=== PATIENT | female | born 1980 | race Caucasian/White ===

== ENCOUNTER 2017-01-04 13:37 | Observation (INO) | payer BC, OTHER ==
[2017-01-04] MEDS ORDERED: KETOROLAC 30 MG/1 ML SDV ONE ×2 (14:05→19:00)
[2017-01-04] MEDS ORDERED: KETOROLAC 15 MG/1 ML SDV IVP ONE (14:09)
[2017-01-04] MEDS ORDERED: NS 1,000 ML IV ONE (14:10)
[2017-01-04 14:18] LABS: COLOR YELLOW; LEUKOCYTE ESTERASE,URINE NEGATIVE (NEGATIVE); NITRITE,URINE NEGATIVE (NEGATIVE)
[2017-01-04] MEDS ORDERED: ONDANSETRON 4 MG/2 ML VIAL IVP ONE (14:32)
--- NOTE | 2017-01-04 14:41 | EDPHY ---
H & P Stated Complaint: rlq abd pain since this morning HPI/ROS: CHIEF COMPLAINT: Abdominal pain HISTORY OF PRESENT ILLNESS: Patient complains of sudden onset of right lower quadrant abdominal pain around 10:00 a.m. today. Constant duration. Moderate to severe pain. Worse with bending over change of position. Does not radiate. No pelvic pain. No vaginal bleeding or discharge. No fever chills. No nausea or vomiting. Some diarrhea with this. No other associated complaints or modifying factors. No history of ovarian cysts or torsion. LMP was 4 weeks ago PREVIOUS ABDOMINAL SURGERIES/DIAGNOSES: None NPO: Last night REVIEW OF SYSTEMS: Ten systems reviewed and are negative unless otherwise noted in the HPI EXAMINATION: General Appearance: Alert, no distress, in obvious discomfort Head: normocephalic, atraumatic Eyes: Pupils equal and round, no conjunctival pallor or injection ENT, Mouth: Mucous membranes moist. Uvula midline. Neck: Normal inspection, supple, non-tender Respiratory: Lungs are clear to auscultation. No wheezing, rhonchi or crackles. Cardiovascular: Regular rate and rhythm. No murmur. Pulses intact distally. Gastrointestinal: Abdomen is soft. No distention or tympany. There is moderate to severe tenderness in right lower quadrant. Guarding in the right lower quadrant. Positive Rovsing sign. No rigidity. No CVA tenderness. Back: non-tender, no bony abnormalities Neurological: A&O, nonfocal, GCS 15 Skin: Warm and dry, no rash. No petechiae or purpura Extremities: Nontender, no pedal edema Psychiatric: Mood and affect normal DIFFERENTIAL DIAGNOSES: Including but not limited to appendicitis, colitis, enteritis, ovarian cyst, ovarian torsion, ureteral lithiasis, nephrolithiasis, renal colic MDM: 2:32 p.m. Right lower quadrant abdominal pain with examination that suggest appendicitis. I have ordered a CT scan of the abdomen pelvis. Laboratory studies also been ordered. She is in no acute distress. 3:00 p.m. Leukocytosis without significant laboratory abnormalities otherwise. CT scan is pending. She is currently declining pain medication. 3:40 p.m. Patient has had her CT scan performed. Results are pending at this time. She is in no acute distress still declining pain medication 3:50 p.m. Notified by radiologist Dr. Simmons. CT scan reveals inflammation of the appendix and distal ileum. I re-evaluated the patient informed her that we will obtain General surgery consult to rule out or rule in appendicitis. 3:55 p.m. I discussed the case with General surgery Dr. Arriaga. He will evaluate the patient emergency department 4:[address] Arriaga has evaluated the patient in the emergency department. He plans to take the patient to the OR for laparoscopic appendectomy. He does not have any further orders for her at this time. He plans to discharge her home from the OR later today. She will be discharged to the operating room for disposition from there. She is in no acute distress, stable condition at this time. ED Precautions: Worsening pain. Fever. Bloody stools. Bloody emesis. Constipation or diarrhea. SUPERVISION: Patient was evaluated in conjunction with the supervising physician. Please see their note for details. Source: Patient, Family Exam Limitations: No limitations - Personal History LMP (Females 10-55): 15-21 Days Ago Current Tetanus/Diphtheria Vaccine: Yes - Medical/Surgical History Hx Asthma: No Hx Chronic Respiratory Disease: No Hx Diabetes: No Hx Cardiac Disease: No Hx Renal Disease: No Hx Cirrhosis: No Hx Alcoholism: No Hx HIV/AIDS: No Hx Splenectomy or Spleen Trauma: No Other PMH: denies - Social History Smoking Status: Never smoked Constitutional: Initial Vital Signs Temperature (C) 98.2 F 01/04/17 13:41 Heart Rate 105 H 01/04/17 13:41 Respiratory Rate 20 01/04/17 13:41 Blood Pressure 114/80 01/04/17 13:41 O2 Sat (%) 99 01/04/17 13:41 O2 Delivery Mode Room Air Allergies/Adverse Reactions: Sulfa (Sulfonamide Antibiotics) Allergy (Verified 01/04/17 13:40) Home Medications: Medication Instructions Recorded Citalopram [CeleXA 20 MG] 40 mg PO DAILY 01/04/17 Clindamycin 150 mg PO Q8HRS #0 cap 01/05/17 Doxycycline Hyclate [Vibramycin 100 mg PO BID #0 capsule 01/05/17 100 MG (*)] Hydrocodone/APAP 5/325 [[place] 1 - 2 tab PO Q4HRS PRN #20 tab 01/05/17 5/325 (*)] Medical Decision Making - Diagnostics Imaging Results: Imaging Impressions Abdomen CT 01/04/17 14:32 Impression: Regional inflammation the right lower quadrant involving both the terminal ileum and the appendix. It is unclear whether this represents primary appendicitis with reactive inflammation of the terminal ileum, or enteritis/ Crohn disease resulting in secondary inflammation of the appendix. 2. No abscess, perforation, or bowel obstruction. 3. Hemorrhagic follicle left ovary. Findings discussed with Emergency Department physician patent legal assistant, Johnny Bojorquez at 01/04/2017 15:54. - Data Points Laboratory Results: Laboratory Results 01/04/17 14:00 01/04/17 14:00 Medications Given: Discontinued Medications Hydrocodone Bitart/Acetaminophen ([place] 5/325) 1 - 2 tab PO Q4HRS PRN PRN Reason: Pain, Moderate Able to Take PO Stop: 01/14/17 20:02 Last Admin: 01/05/17 10:25 Dose: 1 tab Clindamycin (Clindamycin) 150 mg PO Q8HRS MAYELA PRN Reason: Protocol Stop: 02/03/17 21:59 Last Admin: 01/05/17 06:01 Dose: 150 mg Doxycycline Hyclate (Doxycycline Hyclate) 100 mg PO BID MAYELA PRN Reason: Protocol Stop: 02/03/17 20:59 Last Admin: 01/05/17 08:48 Dose: 100 mg Sodium Chloride (Ns) 1,000 mls @ 0 mls/hr IV ONCE ONE PRN Reason: Wide Open Stop: 01/04/17 14:11 Last Admin: 01/04/17 14:12 Dose: 1,000 mls Ertapenem 1 gm/ Sodium (Chloride) 100 mls @ 200 mls/hr IV EDNOW ONE PRN Reason: Protocol Stop: 01/04/17 17:55 Last Admin: 01/04/17 22:04 Dose: Not Given Ketorolac Tromethamine (Toradol) 15 mg IVP EDNOW ONE Stop: 01/04/17 14:10 Last Admin: 01/04/17 14:11 Dose: 15 mg Ketorolac Tromethamine (Toradol) 15 mg IVP Q6HRS [facility] Stop: 01/10/17 00:00 Last Admin: 01/05/17 11:57 Dose: 15 mg Morphine Sulfate (Morphine) 6 mg IVP EDNOW ONE Stop: 01/04/17 14:33 Last Admin: 01/04/17 17:00 Dose: 4 mg Morphine Sulfate (Morphine) 1 - 2 mg IVP Q2HRS PRN PRN Reason: Pain, Breakthrough Stop: 01/14/17 20:02 Last Admin: 01/04/17 21:32 Dose: 2 mg Ondansetron HCl (Zofran) 4 mg IVP EDNOW ONE Stop: 01/04/17 14:33 Last Admin: 01/04/17 17:00 Dose: 4 mg Departure - Departure Disposition: [facility] Acute Condition: Good
[2017-01-04 14:43] LABS: WBC,URINE NONE SEEN /hpf (0-3)
[2017-01-04 14:43] LABS: % IMMATURE GRANULYOCYTES 0.3 % (0.0-1.1); ABSOLUTE IMMATURE GRANULOCYTES 0.05 10^3/uL (0.00-0.10); ADD DIFF? NO; ADD MORPH? NO; ADD SCAN? NO; ALANINE AMINOTRANSFERASE 23 IU/L (9-52); ALBUMIN 4.6 g/dL (3.5-5.0); ALKALINE PHOSPHATASE 77 IU/L (38-126); ANION GAP 11 mEq/L (8-16); ASPARTATE AMINOTRANSFERASE 19 IU/L (14-46); ATYPICAL LYMPHOCYTE FLAG 10 (0-99); BILIRUBIN,TOTAL 0.9 mg/dL (0.1-1.4); BILIRUBIN-CONJUGATED 0.4 mg/dL (0.0-0.5); BILIRUBIN-UNCONJUGATED 0.5 mg/dL (0.0-1.1); CALCIUM 9.3 mg/dL (8.5-10.4); CARBON DIOXIDE 23 mEq/l (22-31); CHLORIDE 103 mEq/L (97-110); CREATININE 0.7 mg/dL (0.6-1.0); FRAGMENT RBC FLAG 0 (0-99); GLOMERULAR FILTRATION RATE > 60; GLUCOSE 99 mg/dL (70-100); HEMATOCRIT 43.6 % (38.0-47.0); HEMOGLOBIN 14.7 g/dL (12.6-16.3); LEFT SHIFT FLG 40 (0-99); LIPEMIA HEMOLYSIS FLAG 80 (0-99); MEAN CELL HEMOGLOBIN 28.9 pg (27.9-34.1); MEAN CELL HEMOGLOBIN CONCENTR. 33.7 g/dL (32.4-36.7); MEAN CELL VOLUME 85.7 fL (81.5-99.8); MEAN PLATELET VOLUME 9.3 fL (8.7-11.7); PLATELET CLUMPS FLAG 20 (0-99); PLATELET COUNT 233 10^3/uL (150-400); POTASSIUM 3.7 mEq/L (3.5-5.2); RED BLOOD CELL COUNT 5.09 10^6/uL (4.18-5.33); SODIUM 137 mEq/L (134-144); TOTAL PROTEIN 7.3 g/dL (6.3-8.2)
[2017-01-04 14:53] LABS: INR 0.92 (0.83-1.16); PROTIME(PATIENT) 12.3 SEC (12.0-15.0)
[2017-01-04 14:54] LABS: APTT 25.3 SEC (23.0-38.0)
[2017-01-04] MEDS ORDERED: IOPAMIDOL (ISOVUE-300) 100 ML BTL ONE (15:09)
[2017-01-04] MEDS ORDERED: ONDANSETRON 4 MG/2 ML VIAL ONE ×2 (16:49→17:48)
[2017-01-04] MEDS ORDERED: ERTAPENEM 1 GM in NS 100 ML IV ONE (17:26)
--- NOTE | 2017-01-04 17:30 | PDCONSULT ---
Surveyor Helper Rod Note: 36 yo woman with onset of RLQ abd pain this am. Progressively worsening with pain now excruciating. Some diarrhea. No N/V. No prior episodes. No family hx of GI issues. PMH: none PSH: Right 6th digit excision Meds: none (IUD) Allergy Sulfa drugs rxn GI/eye swelling Fam Hx: MGF heart, skin cancers ROS: abd pain all others reviewed and are negative Temp Pulse Resp BP Pulse Ox 37.1 C 90 16 114/80 98 01/04/17 16:17 01/04/17 16:17 01/04/17 16:17 01/04/17 13:41 01/04/17 16:17 Anicteric, EOMI RRR S1/S2 no murmur CTA, no wheezes Guarding tender at Elio's point AA&O Appears in mild-moderate distress due to abd pain no cervical/supraclavicular adenopathy No JVD/trachea midline skin normal turgir and tone No CVA tenderness Non focal neurologic exam 01/04/17 14:00 01/04/17 14:00 Total Bilirubin 0.9 mg/dL (0.1-1.4) 01/04/17 14:00 Conjugated Bilirubin 0.4 mg/dL (0.0-0.5) 01/04/17 14:00 Unconjugated Bilirubin 0.5 mg/dL (0.0-1.1) 01/04/17 14:00 AST 19 IU/L (14-46) 01/04/17 14:00 ALT 23 IU/L (9-52) 01/04/17 14:[address] 01/04/17 14:32 Impression: Regional inflammation the right lower quadrant involving both the terminal ileum and the appendix. It is unclear whether this represents primary appendicitis with reactive inflammation of the terminal ileum, or enteritis/ Crohn disease resulting in secondary inflammation of the appendix. 2. No abscess, perforation, or bowel obstruction. 3. Hemorrhagic follicle left ovary. Findings discussed with Emergency Department physician assistant facility manager, Johnny Bojorquez at 01/04/2017 15:54. I personally reviewed the images on PACS with robotic machine tender production radiologist Assessment/plan: Abdominal pain Appendicitis and ruptured ovarian cyst in the differential. Favor appendicitis due to exam and WBC elevation Recommend IV Invanz, laparoscopy appendectomy. The risks, benefits and alternatives including but not limited to bleeding, infection, injury to adjacent structures and need for additional intervention Consent obtained from patient.
[2017-01-04] MEDS ORDERED: BUPIVACAINE 0.5% 30 ML SDV ONE (17:35)
[2017-01-04] MEDS ORDERED: LIDOCAINE 1% 300 MG/30 ML SDV ONE (17:36)
[2017-01-04] MEDS ORDERED: ROCURONIUM 50 MG/5 ML VIAL ONE (17:48)
[2017-01-04] MEDS ORDERED: LIDOCAINE 2% 100 MG/5 ML SYR ONE (17:48)
[2017-01-04] MEDS ORDERED: SUGAMMADEX SODIUM 200 MG/2 ML VIAL IVP ONE (17:48)
[2017-01-04] MEDS ORDERED: DEXAMETHASONE 4 MG/ML VIAL ONE (17:48)
[2017-01-04] MEDS ORDERED: fentaNYL 100 MCG/2 ML INJ ONE (17:49)
[2017-01-04] MEDS ORDERED: PROPOFOL 200 MG/20 ML VIAL ONE (17:49)
[2017-01-04] MEDS ORDERED: MIDAZOLAM 2 MG/2 ML VIAL ONE (17:59)
[2017-01-04] MEDS ORDERED: ceFAZolin 1 GM VIAL ONE ×2 (18:13→18:14)
--- NOTE | 2017-01-04 19:59 | GCON ---
[f rep st] CONSULTATION INTRAOPERATIVE CONSULTATION DATE OF CONSULTATION: 01/04/2017 SERVICE: Gynecology Service. HISTORY UPON CONSULTATION: I was called by Dr. 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 The patient is a 36-year-old, para 1, who had presented to the emergency room co mplaining of right lower quadrant pain and was febrile. The patient had had a CAT scan which had re vealed potential terminal ilium inflammation with possible inflamed appendix and was also noted to h ave a left ovarian cyst. The patient was taken to the operating room by Dr. Arriaga feeling that sh e had an appendicitis. Per Dr. Arriaga, there were no comments of vaginal issues and no vaginal cul tures had been obtained. From his recollection, the patient had a baby a year ago and had an IUD in place. The patient reportedly had an elevated white count of 15,000 and was febrile in the emergen cy room. Operative time, the patient had a normal-appearing appendix by Dr. Arriaga's report and th is has already been removed. He had question about how the left tube appeared and wondered if this was possibly a TOA versus a pyosalpinx. The uterus appeared totally normal, was mobile, d there wer e no adhesions. There were small amounts of pus-appearing fluid in the posterior cul-de-sac. Dr. Jeff snell reported that he had suctioned out quite a bit of pus already. The right tube and ovary appe ared totally normal and was free of adhesions and no signs of endometriosis. The left ovary appeare d normal with possibly a small cyst that had a benign appearance. However, the ovary was still norm al size, approximately 3 cm. The left tube had possible dilation in the distal portion consistent w ith a hydrosalpinx. There was really no inflammation and no active pus at the fimbria. The fimbria appeared normal and were not inflamed, and there was no sign of adhesions at all. The bowel appear ed normal per Dr. Arriaga. The liver edge appeared normal and smooth, and there were no adhesions s igns that would be consistent with Ppir-Phgc-Ubdgkm syndrome. ASSESSMENT: Intraoperative consultation for a 36-year-old with fever and right lower quadrant pain. Intraoperatively, the patient has a normal appendix that was removed, and the terminal ilium was n ormal per Dr. Arriaga. Gynecologic organs appear normal except for possibly mild hydrosalpinx on th e left tube but no signs of a tubo-ovarian abscess or pyosalpinx. No scar tissue. I recommend obtaining some of the fluid for culture. I feel the patient would be a candidate for ou tpatient management. In case this has any wastewater process engineer component, I recommend covering with clindamycin and doxycycline. Dr. Arriaga will discharge the patient after surgery and advise a 1-week followup with a mushroom laborer. If the patient has an existing doctor, she should follow up with them, otherwise [facility], [place]. Approximately 5-10 minutes was spent in the operating room discussing the case with Dr. Arriaga. I did not scrub in on the case. /[id number]/MODL
[2017-01-04] MEDS ORDERED: HYDROCODONE/APAP 5/325 TAB PO PRN (20:03)
[2017-01-04] MEDS ORDERED: ONDANSETRON 4 MG/2 ML VIAL IVP PRN (20:03)
--- NOTE | 2017-01-04 20:29 | GOP ---
[f rep st] OPERATIVE REPORT DATE OF OPERATION: SURGEON: Abdirashid Arriaga MD ANESTHESIA: General endotracheal anesthesia was used. ANESTHESIOLOGIST: Checo Walker MD PREOPERATIVE DIAGNOSIS: Appendicitis POSTOPERATIVE DIAGNOSIS: Pelvic inflammatory disease and appendicitis. PROCEDURE PERFORMED: Laparoscopic appendectomy, aspiration of fluid. FINDINGS: SPECIMENS: Appendix and culture fluid for routine culture. INDICATIONS: A 36-year-old woman who presents with right lower quadrant abdominal pain, leukocytosi s, and fever. CT scan shows fluid in the pelvis. Possible appendicitis, possible ileitis. DESCRIPTION OF PROCEDURE: The patient was brought to the operating room. After induction of endotr acheal anesthesia in a supine position, her abdomen was prepped with chlorhexidine and draped steril marisol. Open trocar placement was done supraumbilically and the abdomen was insufflated to 15 torr wit h carbon dioxide. Working trocars were placed in the lower midline under direct visualization. The re was pus noted in the cul-de-sac. The appendix looked grossly normal, although it was curled. Th e left fallopian tube had a small degree of hydrosalpinx and was larger than the right side. Intrao perative consult was done with Dr. Bourne to ensure no additional procedures or concerns were to be done. The left and right ovary appeared grossly normal. The small bowel was run from the ligament of Treitz to the ileocecal valve. There was no sign of pathology within the small bowel. The dista l colon from the splenic flexure to the rectum all appeared normal without any signs of inflammation . It was decided to perform an appendectomy, as this was the most likely source of her pelvic infla mmatory disease. No Kmyb-Xxdx-Mnvlcm was noted. The mesoappendix was controlled with LigaSure bipolar energy and the appendix was divided flush with the base using an Endo-CHARLETTE stapler. This was taken off and passed off as a specimen. Cultures obt ained from the cul-de-sac and sent off for routine anaerobic and aerobic culture. The abdomen was t hen irrigated and aspirated until clear. Working trocars were removed. The fascia was closed using 0 Vicryl at the level of the umbilicus and all 3 ports were reapproximated using 4-0 Monocryl. Misha mabond was applied. The patient was awakened, extubated, and taken to the recovery room in stable c ondition. No immediate complications. Needle, instrument, and sponge counts correct x2. INTRAOPERATIVE CONSULT: Mandy Bourne MD /[id number]/MODL
[2017-01-04] MEDS: DOXYCYCLINE HYCLATE 100 MG CAP/TAB PO SCH (21:25)
[2017-01-04] MEDS: CLINDAMYCIN 150 MG CAP PO SCH (22:29)
[2017-01-04] MEDS: KETOROLAC 15 MG/1 ML SDV IVP SCH (23:21)
[2017-01-05] MEDS: KETOROLAC 15 MG/1 ML SDV IVP SCH ×2 (05:50→11:57)
[2017-01-05] MEDS: CLINDAMYCIN 150 MG CAP PO SCH (06:01)
[2017-01-05 07:43] VITALS: RESP 16
[2017-01-05] MEDS: DOXYCYCLINE HYCLATE 100 MG CAP/TAB PO SCH (08:48)
[2017-01-05 11:34] VITALS: BP 101/57; PULSE 90; TEMP 98.3; O2SAT 95
== END 2017-01-05 12:53 | disposition home or self-care (01) ==
LOC: F1N 19:57
PROVIDERS: ADMIT Surgery; ATTEND Surgery
PROC: 0U9F4ZZ Drainage of Cul-de-sac, Percutaneous Endoscopic Approach (ICD-10-PCS; principal; 2017-01-04 18:01)
PROC: 0DTJ4ZZ Resection of Appendix, Percutaneous Endoscopic Approach (ICD-10-PCS; principal; 2017-01-04 18:01)
DX: K37 Unspecified appendicitis (principal); N73.9 Female pelvic inflammatory disease, unspecified; Z88.2 Allergy status to sulfonamides
CPT/HCPCS: 44970; 49322; 74177; G0378; 82947-QW; J0690; J1100; J1335; J1885; J2001; J2250; J2405; J2704; J3010; Q9967

== ENCOUNTER 2017-05-19 09:51 | Emergency (ER) | payer OTHER ==
--- NOTE | 2017-05-19 10:36 | CPEKG ---
Heart Rate: 83 RR Interval: 723 P-R Interval: 116 QRSD Interval: 88 QT Interval: 376 QTC Interval: 442 P La[place]: 41 QRS [place]urel: 59 T Wave Laurel: -24 EKG Severity - BORDERLINE ECG - EKG Impression: SINUS RHYTHM EKG Impression: BORDERLINE T ABNORMALITIES, DIFFUSE LEADS Preliminary Awaiting MD Review
[2017-05-19] MEDS ORDERED: NS 1,000 ML IV ONE ×2 (10:40→11:18)
--- NOTE | 2017-05-19 11:20 | EDPHY ---
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 Denies falling/LOC/head injury. She reports that she continues to eat 3 meals a day and drink plenty of fluids. She did receive her influenza vaccine this year. She missed work today because of the symptoms. She did not call primary care provider Modifying Factors: None Comment: ROS: see HPI Constitutional: No fever, no chills, no weight loss Eyes: No blurred vision Respiratory: No shortness of breath, no cough Cardiovascular: No chest pain Gastrointestinal: No nausea, no vomiting, no diarrhea Genitourinary: No dysuria Extremities: No myalgias Neurologic: No weakness, no numbness Skin: No rashes Hematologic: No bruising, no bleeding MEDICAL/SURGICAL/SOCIAL HISTORY: Medical history: "mild autoimmune disorder', anxiety Surgical history: Denies Social history: Employed. CONSTITUTIONAL: Well-appearing adult white female, awake and alert, no obvious distress HEENT: Atraumatic and normocephalic, PERRL, EOMI. Tympanic membranes clear. Oropharynx clear, no exudate and moist pink mucosa. Airway patent. No lymphadenopathy. No meningismus. Cardiovascular: Normal S1/S2, regular rate, regular rhythm, without murmur rub or gallop. PULMONARY/CHEST: Symmetrical and nontender. Clear to auscultation bilaterally. Good air movement. No accessory muscle usage. ABDOMEN: Soft, nondistended, nontender, no rebound, no guarding, no peritoneal signs, no masses or organomegaly. No CVAT. EXTREMITIES: 2/2 pulses, no deformities, no clubbing, no cyanosis or edema. NEUROLOGICAL: no focal neuro deficits. GCS 15. SKIN: Warm and dry, no erythema. no rash. Good capillary refill. Source: Patient Exam Limitations: No limitations - Personal History LMP (Females 10-55): 1-7 Days Ago Current Tetanus Diphtheria and Acellular Pertussis (TDAP): Yes - Medical/Surgical History Hx Asthma: No Hx Chronic Respiratory Disease: No Hx Diabetes: No Hx Cardiac Disease: No Hx Renal Disease: No Hx Cirrhosis: No Hx Alcoholism: No Hx HIV/AIDS: No Hx Splenectomy or Spleen Trauma: No Other PMH: "mild autoimmune disorder'. anxiety - Social History Smoking Status: Never smoked Constitutional: Initial Vital Signs Temperature (C) 37.2 C 05/19/17 10:03 Heart Rate 84 05/19/17 10:03 Respiratory Rate 16 05/19/17 10:03 Blood Pressure 117/75 05/19/17 10:03 O2 Sat (%) 98 05/19/17 10:03 O2 Delivery Mode Room Air Allergies/Adverse Reactions: Sulfa (Sulfonamide Antibiotics) Allergy (Unknown, Verified 05/19/17 10:03) Home Medications: Medication Instructions Recorded Citalopram [CeleXA 20 MG] 40 mg PO DAILY 01/04/17 Medical Decision Making Procedures: 12 lead EKG: Indication: Fatigue Rhythm: Normal sinus rhythm, rate of 83 beats per minute [place]: Normal Intervals: Normal QRS: Normal ST segments: Normal INTERPRETATION: Normal EKG The 12 lead EKG was interpreted by myself. ED Course/Re-evaluation: EKG, labs, urinalysis, orthostatics Given 2 L normal saline Afebrile and no acute systemic signs. ECG shows no acute ischemic changes, no arrhythmias Orthostatics within normal limits 1200: Labs reviewed; grossly unremarkable. Urinalysis does not show infection Differential Diagnosis: Differential diagnosis includes but is not limited to electrolyte disturbances, anemia, depression, viral syndrome. - Data Points Laboratory Results: Laboratory Results 05/19/17 10:22 05/19/17 10:22 05/19/17 05/19/17 05/19/17 13:05 10: 10:22 WBC RBC Hgb Hct MCV MCH MCHC RDW Plt Count MPV Neut % (Auto) Lymph % (Auto) [place] % (Auto) Eos % (Auto) Baso % (Auto) Nucleat RBC Rel Count Absolute Neuts (auto) Absolute Lymphs (auto) Absolute Monos (auto) Absolute Eos (auto) Absolute Basos (auto) Absolute Nucleated RBC Immature Gran % Immature Gran # ESR Sodium 135 mEq/L mEq/L (134-144) Potassium 4.5 mEq/L mEq/L (3.5-5.2) Chloride 102 mEq/L mEq/L (97-110) Carbon Dioxide 19 mEq/l L mEq/l (22-31) Anion Gap 14 mEq/L mEq/L (8-16) BUN 12 mg/dL mg/dL (7-23) Creatinine 0.7 mg/dL mg/dL (0.6-1.0) Estimated GFR > 60 Glucose 92 mg/dL mg/dL (70-100) Calcium 10.1 mg/dL mg/dL (8.5-10.4) Total Bilirubin 0.9 mg/dL mg/dL (0.1-1.4) AST 19 IU/L IU/L (14-46) ALT 27 IU/L IU/L (9-52) Alkaline Phosphatase 51 IU/L IU/L (38-126) Total Protein 7.9 g/dL g/dL (6.3-8.2) Albumin 4.8 g/dL g/dL (3.5-5.0) Lipase 277 IU/L IU/L (23-300) TSH 3.270 uIU/mL uIU/mL (0.465-4.680) Beta HCG, Qual NEGATIVE Urine Color YELLOW Urine Appearance CLEAR Urine pH 5.0 (5.0-7.5) Ur Specific [place] 1.011 (1.002-1.030) Urine Protein NEGATIVE (NEGATIVE) Urine Ketones NEGATIVE (NEGATIVE) Urine Blood NEGATIVE (NEGATIVE) Urine Nitrate NEGATIVE (NEGATIVE) Urine Bilirubin NEGATIVE (NEGATIVE) Urine Urobilinogen NEGATIVE EU EU (0.2-1.0) Ur Leukocyte Esterase NEGATIVE (NEGATIVE) Urine Glucose NEGATIVE (NEGATIVE) 05/19/17 10:22 WBC 9.75 10^3/uL H 10^3/uL (3.80-9.50) RBC 4.92 10^6/uL 10^6/uL (4.18-5.33) Hgb 14.9 g/dL g/dL (12.6-16.3) Hct 42.2 % % (38.0-47.0) MCV 85.8 fL fL (81.5-99.8) MCH 30.3 pg pg (27.9-34.1) MCHC 35.3 g/dL g/dL (32.4-36.7) RDW 12.7 % % (11.5-15.2) Plt Count 323 10^3/uL 10^3/uL (150-400) MPV 9.0 fL fL (8.7-11.7) Neut % (Auto) 60.0 % % (39.3-74.2) Lymph % (Auto) 30.6 % % (15.0-45.0) [place] % (Auto) 8.0 % % (4.5-13.0) Eos % (Auto) 0.4 % L % (0.6-7.6) Baso % (Auto) 0.6 % % (0.3-1.7) Nucleat RBC Rel Count 0.0 % % (0.0-0.2) Absolute Neuts (auto) 5.85 10^3/uL 10^3/uL (1.70-6.50) Absolute Lymphs (auto) 2.98 10^3/uL 10^3/uL (1.00-3.00) Absolute Monos (auto) 0.78 10^3/uL 10^3/uL (0.30-0.80) Absolute Eos (auto) 0.04 10^3/uL 10^3/uL (0.03-0.40) Absolute Basos (auto) 0.06 10^3/uL 10^3/uL (0.02-0.10) Absolute Nucleated RBC 0.00 10^3/uL 10^3/uL (0-0.01) Immature Gran % 0.4 % % (0.0-1.1) Immature Gran # 0.04 10^3/uL 10^3/uL (0.00-0.10) ESR 7 MM/HR MM/HR (0-20) Sodium Potassium Chloride Carbon Dioxide Anion Gap BUN Creatinine Estimated GFR Glucose Calcium Total Bilirubin AST ALT Alkaline Phosphatase Total Protein Albumin Lipase TSH Beta HCG, Qual Urine Color Urine Appearance Urine pH Ur Specific [place] Urine Protein Urine Ketones Urine Blood Urine Nitrate Urine Bilirubin Urine Urobilinogen Ur Leukocyte Esterase Urine Glucose Medications Given: Discontinued Medications Sodium Chloride (Ns) 1,000 mls @ 0 mls/hr IV ONCE ONE PRN Reason: Wide Open Stop: 05/19/17 10:41 Last Admin: 05/19/17 10:41 Dose: 1,000 mls Sodium Chloride (Ns) 1,000 mls @ 0 mls/hr IV ONCE ONE; Wide Open PRN Reason: Protocol Stop: 05/19/17 11:19 Last Admin: 05/19/17 12:05 Dose: 1,000 mls Ketorolac Tromethamine (Toradol) 30 mg IVP ONCE ONE Stop: 05/19/17 13:07 Last Admin: 05/19/17 13:10 Dose: 30 mg Departure - Departure Disposition: Home, Routine, Self-Care Clinical Impression: Viral syndrome Condition: Good Instructions: Viral Syndrome (ED) Additional Instructions: All your laboratory values today are unremarkable including no signs of anemia/ kidney injury/electrolyte imbalance/thyroid disease/urinary tract infection It appears you have a virus. Please rest as much as possible, drink plenty of fluids. Referrals: [facility],. [Clinic] - As per Instructions
[2017-05-19 11:24] LABS: % IMMATURE GRANULYOCYTES 0.4 % (0.0-1.1); ABSOLUTE IMMATURE GRANULOCYTES 0.04 10^3/uL (0.00-0.10); ADD DIFF? NO; ADD MORPH? NO; ADD SCAN? NO; ATYPICAL LYMPHOCYTE FLAG 10 (0-99); FRAGMENT RBC FLAG 0 (0-99); HEMATOCRIT 42.2 % (38.0-47.0); HEMOGLOBIN 14.9 g/dL (12.6-16.3); LEFT SHIFT FLG 0 (0-99); LIPEMIA HEMOLYSIS FLAG 90 (0-99); MEAN CELL HEMOGLOBIN 30.3 pg (27.9-34.1); MEAN CELL HEMOGLOBIN CONCENTR. 35.3 g/dL (32.4-36.7); MEAN CELL VOLUME 85.8 fL (81.5-99.8); PLATELET CLUMPS FLAG 0 (0-99); PLATELET COUNT 323 10^3/uL (150-400); RED BLOOD CELL COUNT 4.92 10^6/uL (4.18-5.33); RED CELL DISTRIBUTION WIDTH 12.7 % (11.5-15.2)
[2017-05-19 11:40] LABS: ALANINE AMINOTRANSFERASE 27 IU/L (9-52); ALBUMIN 4.8 g/dL (3.5-5.0); ALKALINE PHOSPHATASE 51 IU/L (38-126); ANION GAP 14 mEq/L (8-16); ASPARTATE AMINOTRANSFERASE 19 IU/L (14-46); BILIRUBIN,TOTAL 0.9 mg/dL (0.1-1.4); CALCIUM 10.1 mg/dL (8.5-10.4); CARBON DIOXIDE 19 mEq/l (22-31); CHLORIDE 102 mEq/L (97-110); CREATININE 0.7 mg/dL (0.6-1.0); GLOMERULAR FILTRATION RATE > 60; GLUCOSE 92 mg/dL (70-100); POTASSIUM 4.5 mEq/L (3.5-5.2); SODIUM 135 mEq/L (134-144); TOTAL PROTEIN 7.9 g/dL (6.3-8.2)
[2017-05-19 11:41] LABS: SEDIMENTATION RATE 7 MM/HR (0-20)
[2017-05-19 13:05] VITALS: BP 140/86; PULSE 91; RESP 18; TEMP 99; O2SAT 96
[2017-05-19] MEDS ORDERED: KETOROLAC 30 MG/1 ML SDV IVP ONE (13:06)
[2017-05-19 13:13] LABS: COLOR YELLOW; LEUKOCYTE ESTERASE,URINE NEGATIVE (NEGATIVE); NITRITE,URINE NEGATIVE (NEGATIVE)
== END 2017-05-19 13:44 | disposition home or self-care (01) ==
LOC: EEVIPCON 09:51
DX: B34.9 Viral infection, unspecified (principal); E86.9 Volume depletion, unspecified
CPT/HCPCS: 96374; J1885

== ENCOUNTER 2017-11-06 11:24 | Emergency (ER) | payer OTHER ==
[2017-11-06] MEDS ORDERED: OXYCODONE/APAP 5/325 TAB ONE (13:18)
[2017-11-06] MEDS ORDERED: IBUPROFEN 600 MG TAB PO ONE ×2 (13:18→13:20)
[2017-11-06] MEDS ORDERED: OXYCODONE/APAP 5/325 TAB PO ONE (13:20)
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
[2017-11-06 14:35] VITALS: BP 115/71
== END 2017-11-06 14:35 | disposition home or self-care (01) ==
DX: S32.591A Other specified fracture of right pubis, initial encounter for closed fracture (principal); V00.328A Other snow-ski accident, initial encounter; Y92.89 Other specified places as the place of occurrence of the external cause; Y99.8 Other external cause status; Y93.23 Activity, snow (alpine) (downhill) skiing, snowboarding, sledding, tobogganing and snow tubing